=== PATIENT | female | born 1950 | race Caucasian/White ===

== ENCOUNTER 2016-09-27 16:24 | Emergency (ER) | payer OTHER, MEDICARE, MEDICAID ==
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
[2016-09-27] MEDS ORDERED: LIDOCAINE 5% (700 MG) TRANSDERMAL ADH..PATCH TP ONE (18:33)
[2016-09-27] MEDS ORDERED: ACETAMINOPHEN 325 MG TABLET PO ONE (18:33)
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
[2016-09-27 20:02] VITALS: BP 156/80
== END 2016-09-27 20:03 | disposition home or self-care (01) ==
LOC: ER 16:24
DX: M54.2 Cervicalgia (principal); V44.6XXA Car passenger injured in collision with heavy transport vehicle or bus in traffic accident, initial encounter; I48.91 Unspecified atrial fibrillation; I10 Essential (primary) hypertension; E11.9 Type 2 diabetes mellitus without complications; Z79.01 Long term (current) use of anticoagulants; Z88.0 Allergy status to penicillin; Z88.8 Allergy status to other drugs, medicaments and biological substances; Z87.892 Personal history of anaphylaxis; Z91.030 Bee allergy status; Z91.038 Other insect allergy status; Z86.711 Personal history of pulmonary embolism
CPT/HCPCS: 99283; 70450; 72125; L0120

== ENCOUNTER 2019-03-10 14:00 | Emergency (ER) | payer MEDICARE, MEDICAID ==
--- NOTE | 2019-03-10 15:05 | ER Document Report ---
ED Medical Screen (RME) - General Chief Complaint: Urinary Problem Stated Complaint: BLOOD IN URINE Time Seen by Provider: 03/10/19 14:40 Primary Care Provider: SEPIDEH ALBARADO MD [Primary Care Provider] - Follow up as needed Mode of Arrival: Ambulatory Information source: Patient Notes: Patient presents emergency department with complaints of hematuria that started this morning. Also complains of lower abdominal pain and left flank pain. denies trauma. Denies fever vomiting diarrhea. Denies pain with void. Has history of colon resection. I have greeted and performed a rapid initial assessment of this patient. A comprehensive ED assessment and evaluation of the patient, analysis of test results and completion of the medical decision making process will be conducted by additional ED providers. Dictation of this chart was performed using voice recognition software; therefore, there may be some unintended grammatical errors. TRAVEL OUTSIDE OF THE [place] IN LAST 30 DAYS: No - Related Data Allergies/Adverse Reactions: Penicillins Allergy (Severe, Verified 03/10/19 14:01) Difficulty breathing codeine [Codeine] Adverse Reaction (Severe, Verified 03/10/19 14:01) nausea/dizziness bandaids Allergy (Severe, Uncoded 03/10/19 14:01) Skin Redness bee stings Allergy (Severe, Uncoded 03/10/19 14:01) Anaphylaxis fire ants Allergy (Severe, Uncoded 03/10/19 14:01) Anaphylaxis Past Medical History - Past Medical History Cardiac Medical History: Reports: Hx Hypercholesterolemia, Hx Hypertension - meds x 5 yrs, Hx Pulmonary Embolism - Many years ago. Denies: Hx Atrial Fibrillation, Hx Congestive Heart Failure, Hx Coronary Artery Disease, Hx Heart Attack, Hx Peripheral Vascular Disease, Hx Heart Murmur Pulmonary Medical History: Reports: Hx Bronchitis, Hx Pneumonia Denies: Hx Asthma, Hx COPD, Hx Respiratory Failure, Hx Sleep Apnea, Hx Tuberculosis Neurological Medical History: Denies: Hx Cerebrovascular Accident, Hx Seizures Endocrine Medical History: Reports: Hx Diabetes Mellitus Type 2. Denies: Hx Graves' Disease, Hx Hyperthyroidism, Hx Hypothyroidism Renal/ Medical History: Denies: Hx End Stage Renal Disease, Hx Kidney Stones, Hx Ovarian Cysts, Hx Peritoneal Dialysis, Hx Pelvic Inflammatory Disease Malignancy Medical History: Denies: Hx Breast Cancer, Hx Cervical Cancer, Hx Leukemia, Hx Lung Cancer, Hx Ovarian Cancer GI Medical History: Reports: Hx Gastroesophageal Reflux Disease. Denies: Hx Crohn's Disease, Hx Hiatal Hernia, Hx Irritable Bowel, Hx Liver Failure, Hx Pancreatitis, Hx Ulcer Musculoskeltal Medical History: Reports Hx Arthritis, Denies Hx Fibromyalgia, Denies Hx Multiple Sclerosis, Denies Hx Muscular Dystrophy, Denies Hx Systemic Lupus Erythematosus Psychiatric Medical History: Denies: Hx Bipolar Disorder, Hx Dementia, Hx Depression, Hx Post Traumatic Stress Disorder, Hx Schizophrenia Traumatic Medical History: Denies: Hx Fractures Infectious Medical History: Denies: Hx HIV Past Surgical History: Reports: Hx Bowel Surgery - colon removed diverticulosis with ruptured colon, Hx Cholecystectomy, Hx Colostomy - reversed, Hx Orthopedic Surgery - Carpal tunnel. Denies: Hx Appendectomy, Hx Section, Hx Coronary Artery Bypass Graft, Hx Gastric Bypass Surgery, Hx Herniorrhaphy, Hx Hysterectomy, Hx Mastectomy, Hx Pacemaker, Hx Tonsillectomy, Hx Tubal Ligation - Immunizations Hx Diphtheria, Pertussis, Tetanus Vaccination: Yes Physical Exam - Vital signs Vitals: Temp Pulse Resp BP Pulse Ox 97.9 F 71 16 152/102 H 97 03/10/19 14:08 03/10/19 14:08 03/10/19 14:08 03/10/19 14:08 03/10/19 14:08 Course - Vital Signs Vital signs: Temp Pulse Resp BP Pulse Ox 97.9 F 71 16 152/102 H 97 03/10/19 14:08 03/10/19 14:08 03/10/19 14:08 03/10/19 14:08 03/10/19 14:08 Doctor's Discharge - Discharge Referrals: SEPIDEH ALBARADO MD [Primary Care Provider] - Follow up as needed
--- NOTE | 2019-03-10 15:53 | RADIOLOGY REPORT (SQ) ---
EXAM DESCRIPTION: [employer] COMPLETED DATE/TIME: 03/10/2019 3:43 pm REASON FOR STUDY: left flank pain, hematuria COMPARISON: None. TECHNIQUE: Dynamic and static grayscale images acquired of the kidneys and bladder and recorded on P ACS. Additional selected color Doppler and spectral images recorded. LIMITATIONS: None. FINDINGS: RIGHT KIDNEY: Normal size. Normal echogenicity. No solid or suspicious masses. No h ydronephrosis. No calcifications. LEFT KIDNEY: Normal size. Normal echogenicity. No solid or suspicious masses. No hydronephrosi s. No calcifications. BLADDER: No masses. OTHER FINDINGS: No other significant finding. IMPRESSION: Unremarkable ultrasound examination of the kidneys. No calculi or hydronephrosis identi fied. Consider multiphasic contrast enhanced CT to further evaluate unexplained hematuria. TECHNICAL DOCUMENTATION: JOB ID: [id number] [employer] All Rights Reserved Reading location - IP/workstation name: [email or web address]
[2019-03-10 16:18] LABS: ABSOLUTE EOSINOPHILS # (AUTO) 0.2 10^3/uL (0.0-0.6); ABSOLUTE LYMPHOCYTES (AUTO) 1.7 10^3/uL (0.5-4.7); ABSOLUTE MONOCYTES (AUTO) 0.6 10^3/uL (0.1-1.4); ABSOLUTE NEUT (AUTO) 6.3 10^3/uL (1.7-8.2); BASOPHILS % (AUTO) 0.2 % (0-2); HEMATOCRIT 39.3 % (36.0-47.0); HEMOGLOBIN 13.1 g/dL (12.0-15.5); LYMPHOCYTES % (AUTO) 19.5 % (13-45); MEAN CORPUSCULAR HEMOGLOBIN 27.7 pg (27.0-33.4); MEAN CORPUSCULAR HGB CONC 33.4 g/dL (32.0-36.0); MEAN CORPUSCULAR VOLUME 83 fl (80-97); MONOCYTES % (AUTO) 6.6 % (3-13); PLATELET COUNT 248 10^3/uL (150-450); RED BLOOD COUNT 4.74 10^6/uL (3.72-5.28); SEGMENTED NEUTROPHILS % (AUTO) 71.7 % (42-78); TOTAL CELLS COUNTED % (AUTO) 100 %; WHITE BLOOD COUNT 8.8 10^3/uL (4.0-10.5)
[2019-03-10 16:19] LABS: INTERNATIONAL RATION (INR) 3.89; PARTIAL THROMBOPLASTIN TIME 40.6 SEC (23.5-35.8); PROTHROMBIN TIME 39.1 SEC (11.4-15.4)
[2019-03-10 16:23] LABS: APPEARANCE,URINE SLIGHTLY-CLOUDY; BILIRUBIN,URINE NEGATIVE (NEGATIVE); GLUCOSE, URINE NEGATIVE (NEGATIVE); KETONES,URINE NEGATIVE (NEGATIVE); LEUKOCYTE ESTERASE,URINE NEGATIVE (NEGATIVE); NITRITE,URINE NEGATIVE (NEGATIVE); PROTEIN,URINE >=500 mg/dL (NEGATIVE); URINE SPECIFIC GRAVITY 1.018; UROBILINOGEN,URINE NEGATIVE mg/dL (<2.0)
[2019-03-10 16:24] LABS: COLOR,URINE RED
[2019-03-10 16:41] LABS: ALANINE AMINOTRANSFERASE 19 U/L (9-52); ALBUMIN 4.5 g/dL (3.5-5.0); ALKALINE PHOSPHATASE 88 U/L (38-126); ANION GAP 11 (5-19); ASPARTATE AMINO TRANSFERASE 24 U/L (14-36); BILIRUBIN,DIRECT 0.5 mg/dL (0.0-0.4); BILIRUBIN,TOTAL 1.9 mg/dL (0.2-1.3); BLOOD UREA NITROGEN 13 mg/dL (7-20); CALCIUM 9.7 mg/dL (8.4-10.2); CARBON DIOXIDE 26 mmol/L (22-30); CHLORIDE 105 mmol/L (98-107); GLUCOSE 103 mg/dL (75-110); POTASSIUM 4.1 mmol/L (3.6-5.0); SODIUM 142.1 mmol/L (137-145); TOTAL PROTEIN 7.5 g/dL (6.3-8.2)
[2019-03-10] MEDS ORDERED: NITROFURANTOIN MONOHYD/M-CRYST 100 MG CAPSULE PO ONE (19:37)
--- NOTE | 2019-03-10 19:41 | ER Document Report ---
ED General - General Chief Complaint: Urinary Problem Stated Complaint: BLOOD IN URINE Time Seen by Provider: 03/10/19 14:40 Primary Care Provider: SEPIDEH ALBARADO MD [Primary Care Provider] - Follow up as needed Mode of Arrival: Ambulatory TRAVEL OUTSIDE OF THE [place] IN LAST 30 DAYS: No - HPI Notes: Patient is a 68-year-old female that presents to the emergency department for chief complaint of hematuria. Patient states yesterday afternoon she started to notice some pink tinge to her urine. This morning the urine started to appear more bright red. She reports associated suprapubic pressure. She reports some mild nausea today without fever or vomiting. She denies any diarrhea or constipation. She denies injury trauma and falls. Patient does smoke cigarettes daily but denies any history of cancer in the past. She states she has had some burning with urination which began yesterday as well. She states she has not had a urinary tract infection in a while. 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 Past Medical History: PE Past Surgical History: Reviewed in chart Social History: Daily tobacco. Denies alcohol or drug use Family History: Reviewed and noncontributory for presenting illness Allergies: Reviewed, see documented allergy list. REVIEW OF SYSTEMS: CONSTITUTIONAL : No fever No chills No diaphoresis No recent illness EENT: No vision changes No congestion No sore throat CARDIOVASCULAR: No chest pain No palpitations RESPIRATORY: No shortness of breath No cough No difficulty breathing GASTROINTESTINAL: abdominal pain nausea no vomiting No diarrhea GENITOURINARY: dysuria hematuria No difficulty urinating MUSCULOSKELETAL: No back pain No leg pain No arm pain SKIN: No rashes No lesions LYMPHATIC: No swollen, enlarged glands. NEUROLOGICAL: No lightheadedness No headache No weakness No paresthesias PSYCHIATRIC: No anxiety No depression PHYSICAL EXAMINATION: Vital signs reviewed, nursing noted reviewed. GENERAL: Well-appearing, obese and in no acute distress. HEAD: Atraumatic, normocephalic. EYES: Eyes appear normal, extraocular movements intact, sclera anicteric, conjunctiva are normal. ENT: nares patent, oropharynx clear without exudates. Moist mucous membranes. NECK: Normal range of motion, supple without lymphadenopathy LUNGS: Breath sounds clear to auscultation bilaterally and equal. No wheezes rales or rhonchi. HEART: Regular rate and rhythm without murmurs ABDOMEN: Soft, nontender, normoactive bowel sounds. No rebound, guarding, or rigidity. No masses appreciated. EXTREMITIES: Nontender, good range of motion, no pitting or edema. NEUROLOGICAL: No focal neurological deficits. Moves all extremities s pontaneously Motor and sensory grossly intact on exam. PSYCH: Normal mood, normal affect. SKIN: Warm, Dry, normal turgor, no rashes or lesions noted on exposed skin - Related Data Allergies/Adverse Reactions: Penicillins Allergy (Severe, Verified 03/10/19 14:01) Difficulty breathing codeine [Codeine] Adverse Reaction (Severe, Verified 03/10/19 14:01) nausea/dizziness bandaids Allergy (Severe, Uncoded 03/10/19 14:01) Skin Redness bee stings Allergy (Severe, Uncoded 03/10/19 14:01) Anaphylaxis fire ants Allergy (Severe, Uncoded 03/10/19 14:01) Anaphylaxis Past Medical History - General Information source: Patient Last Menstrual Period: 03/09/19 - Social History Smoking Status: Current Every Day Smoker Chew tobacco use (# tins/day): No Frequency of alcohol use: None Drug Abuse: None Family History: Hypertension Patient has suicidal ideation: No Patient has homicidal ideation: No - Past Medical History Cardiac Medical History: Reports: Hx Hypercholesterolemia, Hx Hypertension - meds x 5 yrs, Hx Pulmonary Embolism - Many years ago. Denies: Hx Atrial Fibrillation, Hx Congestive Heart Failure, Hx Coronary Artery Disease, Hx Heart Attack, Hx Peripheral Vascular Disease, Hx Heart Murmur Pulmonary Medical History: Reports: Hx Bronchitis, Hx Pneumonia Denies: Hx Asthma, Hx COPD, Hx Respiratory Failure, Hx Sleep Apnea, Hx Tuberculosis Neurological Medical History: Denies: Hx Cerebrovascular Accident, Hx Seizures Endocrine Medical History: Reports: Hx Diabetes Mellitus Type 2. Denies: Hx Graves' Disease, Hx Hyperthyroidism, Hx Hypothyroidism Renal/ Medical History: Denies: Hx End Stage Renal Disease, Hx Kidney Stones, Hx Ovarian Cysts, Hx Peritoneal Dialysis, Hx Pelvic Inflammatory Disease Malignancy Medical History: Denies: Hx Breast Cancer, Hx Cervical Cancer, Hx Leukemia, Hx Lung Cancer, Hx Ovarian Cancer GI Medical History: Reports: Hx Gastroesophageal Reflux Disease. Denies: Hx Crohn's Disease, Hx Hiatal Hernia, Hx Irritable Bowel, Hx Liver Failure, Hx Pancreatitis, Hx Ulcer Musculoskeletal Medical History: Reports Hx Arthritis, Denies Hx Fibromyalgia, Denies Hx Multiple Sclerosis, Denies Hx Muscular Dystrophy, Denies Hx Systemic Lupus Erythematosus Psychiatric Medical History: Denies: Hx Bipolar Disorder, Hx Dementia, Hx Depression, Hx Post Traumatic Stress Disorder, Hx Schizophrenia Traumatic Medical History: Denies: Hx Fractures Infectious Medical History: Denies: Hx HIV Past Surgical History: Reports: Hx Abdominal Surgery - diverticultitis, Hx Bowel Surgery - colon removed diverticulosis with ruptured colon, Hx Cholecystectomy, Hx Colostomy - reversed, Hx Orthopedic Surgery - Carpal tunnel. Denies: Hx Appendectomy, Hx Section, Hx Coronary Artery Bypass Graft, Hx Gastric Bypass Surgery, Hx Herniorrhaphy, Hx Hysterectomy, Hx Mastectomy, Hx Pacemaker, Hx Tonsillectomy, Hx Tubal Ligation - Immunizations Hx Diphtheria, Pertussis, Tetanus Vaccination: Yes Hx Pneumococcal Vaccination: 07/29/12 Physical Exam - Vital signs Vitals: Temp Pulse Resp BP Pulse Ox 97.9 F 71 16 152/102 H 97 03/10/19 14:08 03/10/19 14:08 03/10/19 14:08 03/10/19 14:08 03/10/19 14:08 Course - Re-evaluation Re-evalutation: 03/10/19 19:41 Vitals reviewed. Nursing notes reviewed. Patient's work-up is unremarkable today. Laboratory 03/10/19 03/10/19 03/10/19 15:40 15:40 15:40 WBC 8.8 RBC 4.74 Hgb 13.1 Hct 39.3 MCV 83 MCH 27.7 MCHC 33.4 RDW 20.0 H Plt Count 248 Seg Neutrophils % 71.7 Lymphocytes % 19.5 Monocytes % 6.6 Eosinophils % 2.0 Basophils % 0.2 Absolute Neutrophils 6.3 Absolute Lymphocytes 1.7 Absolute Monocytes 0.6 Absolute Eosinophils 0.2 Absolute Basophils 0.0 PT 39.1 H INR 3.89 APTT 40.6 H Sodium 142.1 Potassium 4.1 Chloride 105 Carbon Dioxide 26 Anion Gap 11 BUN 13 Creatinine 0.84 Est GFR ( Amer) > 60 Est GFR (Non-Af Amer) > 60 Glucose 103 Calcium 9.7 Total Bilirubin 1.9 H Direct Bilirubin 0.5 H Neonat Total Bilirubin Not Reportable Neonat Direct Bilirubin Not Reportable Neonat Indirect Bili Not Reportable AST 24 ALT 19 Alkaline Phosphatase 88 Total Protein 7.5 Albumin 4.5 Urine Color Urine Appearance Urine pH Ur Specific [place] Urine Protein Urine Glucose (UA) Urine Ketones Urine Blood Urine Nitrite Urine Bilirubin Urine Urobilinogen Ur Leukocyte Esterase Urine RBC (Auto) Squamous Epi Cells Auto Urine Ascorbic Acid 03/10/19 15:40 WBC RBC Hgb Hct MCV MCH MCHC RDW Plt Count Seg Neutrophils % Lymphocytes % Monocytes % Eosinophils % Basophils % Absolute Neutrophils Absolute Lymphocytes Absolute Monocytes Absolute Eosinophils Absolute Basophils PT INR APTT Sodium Potassium Chloride Carbon Dioxide Anion Gap BUN Creatinine Est GFR ( Amer) Est GFR (Non-Af Amer) Glucose Calcium Total Bilirubin Direct Bilirubin Neonat Total Bilirubin Neonat Direct Bilirubin Neonat Indirect Bili AST ALT Alkaline Phosphatase Total Protein Albumin Urine Color RED Urine Appearance SLIGHTLY-CLOUDY Urine pH 6.0 Ur Specific [place] 1.018 Urine Protein >=500 H Urine Glucose (UA) NEGATIVE Urine Ketones NEGATIVE Urine Blood LARGE H Urine Nitrite NEGATIVE Urine Bilirubin NEGATIVE Urine Urobilinogen NEGATIVE Ur Leukocyte Esterase NEGATIVE Urine RBC (Auto) >182 Squamous Epi Cells Auto 22 Urine Ascorbic Acid NEGATIVE Renal Ultrasound 03/10/19 15:03 IMPRESSION: Unremarkable ultrasound examination of the kidneys. No calculi or hydronephrosis identified. Consider multiphasic contrast enhanced CT to further evaluate unexplained hematuria. Patient is well-appearing with no abdominal tenderness. She does have gross h ematuria. Urinalysis does not show any other signs of UTI however patient does have suprapubic pressure and dysuria. She will be started on antibiotics for clinical suspicion of acute UTI. Urine culture has been ordered. Patient is not acutely anemic or orthostatic. She feels well and ambulates without difficulty. She has had an episode of hematuria in the ED which was not visualized by myself or nursing. Patient is a daily tobacco user and I did discuss the possibility of bladder cancer and reiterated the need for her to follow tomorrow for reevaluation. Patient was referred to urology and encouraged to call their office tomorrow morning to be seen as early as possible. I told patient if she is continuing to have bright red blood in her urine or begins to feel lightheaded or increasing fatigue she needs to return to the emergency room tomorrow for reevaluation. Patient was given a dose of Macrobid in the ED prior to discharge. Patient and in agreement with plan of care. - Vital Signs Vital signs: Temp Pulse Resp BP Pulse Ox 97.9 F 71 16 152/102 H 97 03/10/19 14:08 03/10/19 14:08 03/10/19 14:08 03/10/19 14:08 03/10/19 14:08 - Laboratory Result Diagrams: 03/10/19 15:40 03/10/19 15:40 Laboratory results interpreted by me: 03/10/19 03/10/19 03/10/19 15:40 15:40 15:40 RDW 20.0 H PT 39.1 H APTT 40.6 H Total Bilirubin 1.9 H Direct Bilirubin 0.5 H Urine Protein Urine Blood 03/10/19 15:40 RDW PT APTT Total Bilirubin Direct Bilirubin Urine Protein >=500 H Urine Blood LARGE H Discharge - Discharge Clinical Impression: Hematuria Qualifiers: Hematuria type: gross Qualified Code(s): R31.0 - Gross hematuria Condition: Stable Disposition: HOME, SELF-CARE Instructions: Hematuria ([facility]) Additional Instructions: If you are continuing to have bright red blood or an increase in blood in your urine tomorrow or if you begin to feel lightheaded and increasing fatigue you should be evaluated tomorrow in the emergency room or by urology. Please return to the emergency department if you have any worsening, or concern of your symptoms. Please return to the emergency department if you develop chest pain, difficulty breathing, severe abdominal pain, or ongoing vomiting. Please follow-up with your primary care physician in 2-3 days and any other recommended physicians. If prescribed, take all medications as directed. If you have any questions or concerns do not hesitate to return the emergency department for evaluation. Prescriptions: Nitrofurantoin Macrocrystal [Macrodantin] 100 mg PO BID 5 Days capsule Referrals: MIRTA HOPKINS MD [NO LOCAL MD] - Follow up tomorrow SEPIDEH ALBARADO MD [Primary Care Provider] - Follow up tomorrow
[2019-03-10 20:39] VITALS: BP 146/76
== END 2019-03-10 20:46 | disposition home or self-care (01) ==
LOC: ER 14:00
DX: R31.0 Gross hematuria (principal); R11.0 Nausea; R30.0 Dysuria; R10.9 Unspecified abdominal pain; I10 Essential (primary) hypertension; E11.9 Type 2 diabetes mellitus without complications; F17.210 Nicotine dependence, cigarettes, uncomplicated; Z86.711 Personal history of pulmonary embolism; Z86.718 Personal history of other venous thrombosis and embolism; Z79.01 Long term (current) use of anticoagulants; Z88.0 Allergy status to penicillin; Z88.8 Allergy status to other drugs, medicaments and biological substances; Z87.892 Personal history of anaphylaxis; Z91.030 Bee allergy status; Z91.038 Other insect allergy status
CPT/HCPCS: 99284; 36415; 87086; 85025; 85610; 85730; 80053; 81001; 76775; A9270; J8499

== ENCOUNTER → 2019-07-09 | Outpatient (CLI) | payer MEDICARE, MEDICAID ==
--- NOTE | 2019-07-09 10:00 | RADIOLOGY REPORT (SQ) ---
EXAM DESCRIPTION: CT CHEST WITH COMPLETED DATE/TIME: 07/09/2019 9:07 am REASON FOR STUDY: SOLITARY PULMONARY NODULE R91.1 SOLITARY PULMONARY NODULE COMPARISON: 08/11/2016 CT chest 03/24/2019 PET-CT TECHNIQUE: CT scan of the chest performed using helical scanning technique with dynamic intravenous contrast injection. Images reviewed with lung, soft tissue and bone windows. Reconstructed coronal and sagittal MPR and MIP images reviewed. All images stored on PACS. All CT scanners at this facility use dose modulation, iterative reconstruction, and/or weight based d osing when appropriate to reduce radiation dose to as low as reasonably achievable (ALARA). [facility]: Dose Right [facility]: CareDose [facility]: Dose Right [facility]: Teradose 4D [facility]: [employer] CONTRAST TYPE AND DOSE: contrast/concentration: Isovue 350.00 mg/ml; Total Contrast Delivered: 80.0 ml; Total Saline Delivered: 55.0 ml RENAL FUNCTION: Creatinine 0.7 RADIATION DOSE: CT Rad equipment meets quality standard of care and radiation dose reduction techniq ues were employed. CTDIvol: 18.8 mGy. DLP: 806 mGy-cm. . LIMITATIONS: None. FINDINGS: LUNGS AND PLEURA: Progression of multiple nodules bilateral since PET-CT 03/24/2019 as foll ows: New right lower lobe 10 mm nodule axial image 80/145 Increasing 1.8 x 1.6 cm cavitary nodule right posterior lower lobe axial image 84/145 (was solid,15 m m on PET-CT 03/24/2019) Increasing 9 mm nodule right lower lobe axial image 86/145 (was 5 mm diameter 03/24/2019). New 1.7 x 1 cm nodule right posterior costophrenic sulcus axial image 99/145 Stable minimal bandlike scarring left upper lobe axial image 26/145 New 9 mm left upper lobe nodule axial image 62/145 Stable 10 mm nodule left lower lobe axial image 86 New 5 mm left lower lobe nodule axial image 86 No pleural effusions. No airspace disease worrisome for pneumonia. No pneumothorax. Minimal thicke karla of the interlobular septa around the periphery of both lung bases. HILAR AND MEDIASTINAL STRUCTURES: No identified masses or abnormal nodes. HEART AND VASCULAR STRUCTURES: No aneurysm or dissection. No central pulmonary emboli. No pericardi al effusion. Very heavily calcified coronary arteries HARDWARE: None in the chest. UPPER ABDOMEN: Fatty liver, post cholecystectomy. THYROID AND OTHER SOFT TISSUES: No masses. No adenopathy. BONES: No significant finding. OTHER: No other significant finding. IMPRESSION: Increasing size and number of multiple pulmonary nodules. Cavitation of 1 of the larger nodules since prior PET-CT 03/24/2019. Question inflammatory/granulomatous process like sarcoid or r heumatoid arthritis with nodules. Metastatic disease could not entirely be excluded. TECHNICAL DOCUMENTATION: JOB ID: [id number] Quality ID # [id number]: Final reports with documentation of one or more dose reduction techniques (e.g., Au tomated exposure control, adjustment of the mA and/or kV according to patient size, use of iterative reconstruction technique) 2010 [employer]- All Rights Reserved Reading location - IP/workstation name: [email or web address]
== END ==
LOC: WI 08:38
PROVIDERS: ATTEND Internal Medicine Medical Oncology
DX: R91.1 Solitary pulmonary nodule (principal); R91.8 Other nonspecific abnormal finding of lung field
CPT/HCPCS: 71260; 82565

== ENCOUNTER → 2019-09-08 | Day surgery (SDC) | payer MEDICARE, MEDICAID ==
[~2019-09-08] MED LIST: DIPHENHYDRAMINE HCL 50 MG/ML VIAL ONE; EPINEPHRINE INJ 1 MG/10 ML DISP.SYRIN ONE; FLUMAZENIL INJ 0.5 MG/5 ML VIAL ONE; GLUCAGON,HUMAN RECOMB 1 MG INJ ONE; NALOXONE HCL INJ/PF 0.4 MG/1 ML SDV ONE; ONDANSETRON HCL INJ/PF 4 MG/2 ML SDV ONE
[2019-09-08] MEDS: FENTANYL CITRATE INJ/PF 100 MCG/2 ML AMPUL ONE ×3 (07:57→08:25)
[2019-09-08] MEDS: MIDAZOLAM 2 MG/2 ML INJ ONE ×3 (07:57→08:08)
--- NOTE | 2019-09-08 08:45 | Operative Report ---
Nonrecallable Operative Report DATE OF SURGERY: 09/08/19 PREOPERATIVE DIAGNOSIS: hx of colon cancer, screening colonoscopy POSTOPERATIVE DIAGNOSIS: hx of colon cancer, screening colonoscopy OPERATION: screening colonoscopy SURGEON: MARÍA SPICER ANESTHESIA: Moderate Sedation TISSUE REMOVED OR ALTERED: colonic polyps at 120cm and 110 cm COMPLICATIONS: none ESTIMATED BLOOD LOSS: 0 INTRAOPERATIVE FINDINGS: see note PROCEDURE: Procedure note; Patient was brought to the endoscopy suite awake alert stable condition placed in a left lateral decubitus position on the gurney and given IV sedation for the procedure. Fentanyl and Versed were utilized for sedation. After appropriate timeout site verification the procedure commenced. Olympus colonoscope was passed into the rectum and easily traversed the proximal rectum into the sigmoid colon as we traversed the sigmoid colon at approximately 40 cm we noted the previous anastomosis. It appeared to be normal. We then ascended up the descending colon past the splenic flexure through the transverse colon to the ascending colon and then down to the cecum. As we slowly withdrew the scope we noted in the ascending colon approximately at 120 cm there were number of hyperplastic polyps 2 of them were biopsied using cold forceps biopsy. There appeared to be hyperplastic polyps. There were multiple diverticula throughout the entire colon from the proximal rectum all the way to the cecum. As we slowly progressed we visualized the ascending colon hepatic flexure transverse colon splenic flexure and descending colon there was no other pathology other than the polyps noted at the ascending colon just above the cecum. Findings 1. Diffuse diverticulosis throughout the whole colon. 2. Hyperplastic polyps approximately 20 cm proximal to the cecum biopsy x2 cold forceps 3. Grade 2 internal hemorrhoids. Recommendations patient will need a repeat colonoscopy in 1 year secondary to the colonic polyps and a history of colon cancer. Patient tolerated the procedure well return recovery in stable condition
--- NOTE | 2019-09-08 08:51 | Discharge Summary ---
Discharge Summary (SDC) - Discharge Final Diagnosis: screening colonoscopy Date of Surgery: 09/08/19 Discharge Date: 09/08/19 Condition: Good Referrals: CATHIE JACINTO MD [Primary Care Provider] - Discharge Diet: As Tolerated Discharge Activity: Activity As Tolerated Report the Following to Your Physician Immediately: Increase in Pain - pt needs f/u with me in 2wks
[2019-09-08 09:29] VITALS: BP 120/58
== END ==
LOC: END 06:34
PROVIDERS: ATTEND Surgery
DX: Z12.11 Encounter for screening for malignant neoplasm of colon (principal); D12.6 Benign neoplasm of colon, unspecified; Z88.0 Allergy status to penicillin; Z88.5 Allergy status to narcotic agent; E11.9 Type 2 diabetes mellitus without complications; E78.5 Hyperlipidemia, unspecified; G47.30 Sleep apnea, unspecified; Z86.711 Personal history of pulmonary embolism; D51.9 Vitamin B12 deficiency anemia, unspecified; E55.9 Vitamin D deficiency, unspecified; F17.210 Nicotine dependence, cigarettes, uncomplicated; Z79.899 Other long term (current) drug therapy; Z79.01 Long term (current) use of anticoagulants; Z79.84 Long term (current) use of oral hypoglycemic drugs
CPT/HCPCS: 45380; 82962; 88305 ×2; J2250; J3010; J0171; J1200; J1610; J2310; J2405; J3490

== ENCOUNTER → 2020-01-14 | Outpatient (CLI) | payer MEDICARE, MEDICAID | LOC: RAD 13:22 | PROVIDERS: ATTEND Internal Medicine | DX: R06.02 Shortness of breath (principal) | CPT/HCPCS: 93306 ==